=== PATIENT | male | born 1960 | race Caucasian/White ===

== ENCOUNTER 2016-12-08 16:45 | Inpatient (IN) | payer OTHER ==
[~2016-12-08] VITALS: Ht 188 cm; Wt 80.4 kg
[2016-12-08 17:52] LABS: BASOPHIL % 0.5 % (0-2); PLATELET COUNT 218 x10^3mcL (130-400); RED CELL DISTRIBUTION WIDTH 12.4 % (11.5-14.5)
[2016-12-08 18:09] LABS: BILIRUBIN TOTAL 0.46 mg/dL (0.20-1.00); CALCIUM 9.7 mg/dL (8.5-10.1); CARBON DIOXIDE 21.8 mmol/L (21-32); CREATININE SERUM 1.9 mg/dL (0.7-1.3); FREE T4 0.7 ng/dL (0.76-1.46); MAGNESIUM 2.6 mg/dL (1.8-2.4); TOTAL PROTEIN, SERUM 8.2 g/dL (6.4-8.2)
[2016-12-08 18:12] LABS: POTASSIUM SERUM 2.9 mmol/L (3.5-5.1)
[2016-12-08] MEDS ORDERED: GABAPENTIN100 M2 PO (19:15)
[2016-12-08] MEDS ORDERED: GLIPIZIDE10 M2 PO (19:15)
[2016-12-08] MEDS ORDERED: ATIVAN1 MG PO (19:16)
[2016-12-08 19:22] LABS: microscopic required? YES; urine erythrocyte NEGATIVE (NEGATIVE)
[2016-12-08 19:55] LABS: AMPHETAMINE QUAL UR NONE DETECTED (NEG <=1000)
[2016-12-08 19:55] LABS: AMYLASE 103 U/L (25-115); HDL CHOLESTEROL 56 mg/dL (40-60); PHOSPHOROUS 3.9 mg/dL (2.5-4.9)
[2016-12-08 19:56] LABS: CHOLESTEROL 245 mg/dL (<200); CHOLESTEROL/HDL RATIO 4.4; TRIGLYCERIDES 638 mg/dL (<150)
[2016-12-08 20:32] VITALS: BP 117/74
[2016-12-08 20:41] VITALS: BP 117/74
[2016-12-09 05:46] VITALS: BP 93/64
[2016-12-09 06:18] LABS: BASOPHIL % 0.4 % (0-2); PLATELET COUNT 178 x10^3mcL (130-400); RED CELL DISTRIBUTION WIDTH 12.7 % (11.5-14.5)
[2016-12-09 06:39] LABS: CALCIUM 8.8 mg/dL (8.5-10.1); CARBON DIOXIDE 18.1 mmol/L (21-32); CREATININE SERUM 1.4 mg/dL (0.7-1.3); MAGNESIUM 2.5 mg/dL (1.8-2.4); PHOSPHOROUS 3.4 mg/dL (2.5-4.9); POTASSIUM SERUM 3.8 mmol/L (3.5-5.1)
[2016-12-09 09:26] VITALS: BP 106/64
[2016-12-09 14:46] VITALS: BP 100/64
[2016-12-09 17:18] VITALS: BP 97/66
[2016-12-09 20:22] VITALS: BP 107/72
[2016-12-10 04:47] VITALS: BP 89/72; BP 96/63
[2016-12-10 06:05] LABS: BASOPHIL % 0.3 % (0-2); PLATELET COUNT 162 x10^3mcL (130-400); RED CELL DISTRIBUTION WIDTH 12.3 % (11.5-14.5)
[2016-12-10 06:41] LABS: CALCIUM 8.8 mg/dL (8.5-10.1); CARBON DIOXIDE 20.6 mmol/L (21-32); CHLORIDE SERUM 108 mmol/L (98-107); CREATININE SERUM 1.3 mg/dL (0.7-1.3); GFR1 > 60 mL/min; GLUCOSE SERUM 113 mg/dL (74-106); MAGNESIUM 2.4 mg/dL (1.8-2.4); PHOSPHOROUS 3.2 mg/dL (2.5-4.9); POTASSIUM SERUM 3.1 mmol/L (3.5-5.1); SODIUM SERUM 136 mmol/L (136-145)
[2016-12-10 09:31] VITALS: Ht 188 cm; Wt 80.4 kg
[2016-12-10] MEDS ORDERED: LIPI10 PO (09:36)
[2016-12-10] MEDS ORDERED: IMODIUM A-D2 M3 PO (09:41)
[2016-12-10] MEDS ORDERED: KLOR-CON M2020 MEQ PO (09:44)
[2016-12-10 09:52] VITALS: BP 101/55
[2016-12-10 09:59] VITALS: BP 101/55
[2016-12-10 11:49] VITALS: BP 122/68
== END 2016-12-10 13:18 | disposition home or self-care (01) | DRG 73 ==
LOC: ED 16:45 → DU 19:22
PROVIDERS: Emergency Medicine; ADMIT Family Medicine
DX: G90.9 Disorder of the autonomic nervous system, unspecified (principal); N17.0 Acute kidney failure with tubular necrosis; D68.69 Other thrombophilia; E87.1 Hypo-osmolality and hyponatremia; E86.0 Dehydration; E87.6 Hypokalemia; E11.65 Type 2 diabetes mellitus with hyperglycemia; E83.41 Hypermagnesemia; R80.9 Proteinuria, unspecified; E78.5 Hyperlipidemia, unspecified; Z85.72 Personal history of non-Hodgkin lymphomas; Z85.030 Personal history of malignant carcinoid tumor of large intestine; Z79.84 Long term (current) use of oral hypoglycemic drugs; Z88.8 Allergy status to other drugs, medicaments and biological substances; I10 Essential (primary) hypertension; E11.22 Type 2 diabetes mellitus with diabetic chronic kidney disease; N18.9 Chronic kidney disease, unspecified; D64.9 Anemia, unspecified; I12.9 Hypertensive chronic kidney disease with stage 1 through stage 4 chronic kidney disease, or unspecified chronic kidney disease
CPT/HCPCS: 82962; 83880; 84439; J3480; J7030; Q0092

== ENCOUNTER 2017-05-11 14:50 | Emergency (ER) | payer OTHER ==
[~2017-05-11] VITALS: Ht 188 cm; Wt 93.0 kg
[~2017-05-11 14:50] MED LIST: ATIVAN1 MG PO; GABAPENTIN100 M2 PO; GLIPIZIDE10 M2 PO; IMODIUM A-D2 M3 PO; KLOR-CON M2020 MEQ PO; LIPI10 PO
[2017-05-11 14:55] VITALS: Ht 188 cm; Wt 93.0 kg
[2017-05-11 16:23] VITALS: BP 158/93
== END 2017-05-11 16:23 | disposition home or self-care (01) ==
LOC: ED 14:50
DX: I10 Essential (primary) hypertension (principal); E11.9 Type 2 diabetes mellitus without complications; Z88.8 Allergy status to other drugs, medicaments and biological substances